=== PATIENT | female | born 1980 | race Caucasian/White ===

== ENCOUNTER 2016-11-01 10:10 | Emergency (ER) | payer SELFPAY ==
[~2016-11-01] VITALS: Ht 162.6 cm; Wt 57.0 kg
[2016-11-01 10:34] VITALS: BP 110/69; PULSE 77; RESP 28; TEMP 97.9; O2SAT 100
[2016-11-01 11:21] LABS: GLUCOSE,URINE NEG (NEG); KETONE, URINE TRACE mg/dL (NEG); NITRITE,URINE NEG (NEG)
[2016-11-01 11:29] LABS: BLOOD, URINE MOD (NEG)
[2016-11-01 11:30] LABS: METHOD OF COLLECTION CLEAN CATCH; URINE COLOR YELLOW (YELLW/STRAW)
[2016-11-01 11:31] LABS: BACTERIA, URINE FEW /hpf; COMMENT (UR) CULT NOT INDICATED; CULTURE IF INDICATED CULT NOT INDICATED; WBC, URINE 0-2 /hpf (0-5)
[2016-11-01] MEDS ORDERED: CIPR-9 PO (13:22)
[2016-11-01] MEDS ORDERED: ZITHTAB PO (13:42)
[2016-11-01] MEDS ORDERED: DIFL150T PO (13:42)
--- NOTE | 2016-11-01 13:42 | PD ---
HPI Chief Complaint: Cold / Flu Symptoms Time Seen by Provider: 13:22 Travel History International Travel<30 days: No Contact w/Intl Traveler<30days: No Traveled to known affect area: No History of Present Illness HPI 36-year-old female complains of coughing congestion and irregular vaginal bleeding. Patient states that she has productive cough since yesterday. Patient states that she has nasal congestion. Patient states that she has mild shortness of breath. Patient states that she has low-grade fever at home. Patient denies any chest pain. Patient states that she started having pelvic cramping and vaginal bleeding 5 days ago. Patient had IUD placement. Patient denies any dysuria or frequency. Patient denies any back pain. 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 Patient's on day 5 of Cipro for UTI. PFSH Past Medical History Diminished Hearing: No Migraines: Yes Tetanus Vaccination: < 5 Years ?: Not LMP: LMP 1-8-17, BLEEDING TODAY, HAS IUD : 3 Para: 2 Ovarian Cysts: Yes Past Surgical History Abdominal Surgery: Yes (SPHINCTEROTOMY) Body Medical Devices: COPPER IUD Other Surgery: Yes (BILATERAL BREAST AUGMENTATION) Social History Alcohol Use: No Tobacco Use: No Substance Use: No Allergies-Medications (Allergen,Severity, Reaction): Coded Allergies: Codeine (Verified Allergy, Severe, HIVES, DIFFICULTY BREATHING, 11/01/16) Shellfish (Verified Allergy, Severe, Hives, 11/01/16) Reported Meds & Prescriptions Reported Meds & Active Scripts Active Reported Cipro (Ciprofloxacin HCl) 500 Mg Tab 500 Mg PO BID Review of Systems General / Constitutional: No: Fever Eyes: No: Visual changes HENT: No: Headaches Cardiovascular: No: Chest Pain or Discomfort Respiratory: Positive: Cough, Shortness of Breath Gastrointestinal: No: Abdominal Pain Genitourinary: Positive: Vaginal Bleeding, No: Dysuria Musculoskeletal: No: Pain Skin: No Rash Neurologic: No: Weakness Psychiatric: No: Depression Endocrine: No: Polydipsia Hematologic/Lymphatic: No: Easy Bruising Physical Exam Narrative GENERAL: Well-nourished, well-developed patient. SKIN: Warm and dry. HEAD: Normocephalic. EYES: No scleral icterus. No injection or drainage. NECK: Supple, trachea midline. No JVD or lymphadenopathy. CARDIOVASCULAR: Regular rate and rhythm without murmurs, gallops, or rubs. RESPIRATORY: Breath sounds equal bilaterally. No accessory muscle use. GASTROINTESTINAL: Abdomen soft, non-tender, nondistended. MUSCULOSKELETAL: No cyanosis, or edema. BACK: Nontender without obvious deformity. No CVA tenderness. Neurologic exam normal. Data Data Last Documented VS Vital Signs Date Time Temp Pulse Resp B/P Pulse Ox O2 Delivery O2 Flow Rate FiO2 11/01/16 13:17 20 100 Room Air 11/01/16 10:34 97.9 77 110/69 Orders Urinalysis - C+S If Indicated (11/01/16 11:02) Ed Urine Pregnancytest Poc (11/01/16 11:02) Labs Laboratory Tests Test 11/01/16 11:00 Urine Collection Type CLEAN CATCH Urine Color YELLOW Urine Turbidity CLEAR Urine pH 7.0 Urine Specific Morton 1.022 Urine Protein NEG mg/dL Urine Glucose (UA) NEG mg/dL Urine Ketones TRACE mg/dL Urine Occult Blood MOD Urine Nitrite NEG Urine Bilirubin NEG Urine Leukocyte Esterase NEG Urine RBC 10-14 /hpf Urine WBC 0-2 /hpf Urine Squamous Epithelial 6-8 /hpf Cells Urine Bacteria FEW /hpf Microscopic Urinalysis Comment CULT NOT INDICATED Urine Collection Time 11:00 [facility] Medical Decision Making Medical Screen Exam Complete: Yes Emergency Medical Condition: Yes Interpretation(s) 1339 PM. Urine test negative. UA positive few RBC. Otherwise negative WBC. Differential Diagnosis Differential diagnosis including URI, bronchitis, pneumonia, dysfunctional uterine bleeding, dysmenorrhea, threatened AB, ectopic . Narrative Course 36-year-old female with congestion, productive cough, pelvic cramping and vaginal bleeding. Patient is on Cipro for UTI. Diagnosis Primary Impression: Bronchitis Additional Impression: Irregular periods/menstrual cycles Patient Instructions: General Instructions Additional Instructions: Stop Cipro. Z-Chintan as directed. Follow-up with local physician. Return if worse. [id number]-[id number] cough medication as needed. Med/Other Pt SpecificInfo: Prescription(s) given Scripts Fluconazole (Diflucan)150 Mg [id number] Mg PO ONCE #1 TAB Ref 0 Prov:Juan Antonio Bowser MD 11/01/16 Azithromycin (Zithromax Z-Chintan)250 Mg [id number] Mg PO DIRECTED #1 DSPK 500 MG (2 tabs) day 1, then 1 tab days 2-5. Prov:Juan Antonio Bowser MD 11/01/16 Disposition: 01 DISCHARGE HOME Condition: Stable Juan Antonio Bowser MD Nov 01, 2016 13:42
[2016-11-01 13:59] VITALS: BP 112/68
== END 2016-11-01 14:00 | disposition home or self-care (01) ==
LOC: PHED 10:10 → PHEFT 14:00
DX: J40 Bronchitis, not specified as acute or chronic (principal); N92.6 Irregular menstruation, unspecified
CPT/HCPCS: 81001; 84703; 99284

== ENCOUNTER 2017-03-21 01:36 | Emergency (ER) | payer OTHER ==
[~2017-03-21] VITALS: Ht 162.6 cm; Wt 59.3 kg
[~2017-03-21 01:36] MED LIST: CIPR-9 PO; DIFL150T PO; ZITHTAB PO
[2017-03-21 01:43] VITALS: BP 126/76; PULSE 62; RESP 16; TEMP 97.7; O2SAT 97
[2017-03-21 01:53] VITALS: BP 126/76; PULSE 62; RESP 20; TEMP 97.7; O2SAT 97
--- NOTE | 2017-03-21 01:57 | PD ---
HPI Chief Complaint: Allergic/Adverse Reaction Time Seen by Provider: 01:46 Travel History International Travel<30 days: No Contact w/Intl Traveler<30days: No History of Present Illness HPI This is a 37-year-old female who presents to the emergency department with an itchy rash that started around 4 PM, constant, severe, spreading to involve her whole body. She denies any associated shortness of breath, throat tightness, difficulty swallowing or lightheadedness. She did complete a course of Flagyl on Saturday but otherwise has used no new medications. She says her daughter gets allergic reactions like this but this is never happened to her. She took Benadryl and the rash went away for a while but then overnight it woke her up and she took Benadryl but it didn't go away so she came to the emergency department. [facility] Past Medical History Diminished Hearing: No Migraines: Yes : 3 Para: 2 Ovarian Cysts: Yes Past Surgical History Abdominal Surgery: Yes (SPHINCTEROTOMY) Body Medical Devices: COPPER IUD Other Surgery: Yes (BILATERAL BREAST AUGMENTATION) Social History Alcohol Use: No Tobacco Use: No Substance Use: No Allergies-Medications (Allergen,Severity, Reaction): Coded Allergies: Codeine (Verified Allergy, Severe, HIVES, DIFFICULTY BREATHING, 03/21/17) Shellfish (Verified Allergy, Severe, Hives, 03/21/17) Reported Meds & Prescriptions Reported Meds & Active Scripts Active Diflucan (Fluconazole) 150 Mg Tab 150 Mg PO ONCE Zithromax Z-Chintan (Azithromycin) 250 Mg Dspk 250 Mg PO DIRECTED 500 MG (2 tabs) day 1, then 1 tab days 2-5. Reported Diphenhydramine (Diphenhydramine HCl) 25 Mg Cap 25 Mg PO ONCE Cipro (Ciprofloxacin HCl) 500 Mg Tab 500 Mg PO BID Review of Systems Except as stated in HPI: all other systems reviewed are Neg Physical Exam Narrative GENERAL:Well appearing, no acute distress SKIN: Diffuse urticarial rash involving the torso, and bilateral arms and legs HEAD: Atraumatic. Normocephalic. EYES: Pupils equal and round. No injection or drainage. ENT: Moist mucous membranes NECK: Trachea midline. CARDIOVASCULAR: Regular rate and rhythm. No murmur appreciated. RESPIRATORY: Clear to auscultation. Breath sounds equal bilaterally. GASTROINTESTINAL: Abdomen soft, non-tender, nondistended. MUSCULOSKELETAL: No obvious deformities. NEUROLOGICAL: Awake and alert. No obvious cranial nerve deficits. Moving all extremities. PSYCHIATRIC: Appropriate mood and affect; insight and judgment normal. Data Data Last Documented VS Vital Signs Date Time Temp Pulse Resp B/P Pulse Ox O2 Delivery O2 Flow Rate FiO2 03/21/17 02:34 55 20 103/69 99 03/21/17 01:53 97.7 Orders Methylprednisolone So Succ Inj (Solumedr (03/21/17 02:00) Diphenhydramine Inj (Benadryl Inj) (03/21/17 02:00) ^ Insert Iv (03/21/17 01:55) Famotidine Inj (Pepcid Inj) (03/21/17 02:30) Hydroxyzine Hcl (Atarax) (03/21/17 02:30) MDM Medical Decision Making Medical Screen Exam Complete: Yes Emergency Medical Condition: Yes Interpretation(s) Afebrile, no tachycardia, normotensive Differential Diagnosis Urticaria, acute allergic reaction, anaphylaxis Narrative Course This Is a 37-year-old female who presents to the emergency department having had acute onset of an urticarial rash earlier today. She has no respiratory symptoms and no other symptoms of anaphylaxis. She was very uncomfortable and itchy on arrival. An IV was established and she was given steroids, Benadryl and an H2 weston. Her symptoms improved significantly. I am Not sure what the allergen was. She says she has an EpiPen at home that she keeps for her daughter and we discussed the indications for EpiPen use. She'll be discharged home with prednisone and hydroxyzine. Diagnosis Primary Impression: Urticaria Patient Instructions: General Instructions Additional Instructions: If you develop swelling of the throat or coughing a lot, wheezing or trouble breathing, throwing up or having diarrhea, feeling dizzy or passing out, or spreading of your rash return to the emergency room immediately as you may be having a life threatening allergic reaction. Complete your course of steroids and take benadryl or hydroxyzine every 6 hours for the next 48 hours and then as needed for itching or other symptoms. Med/Other Pt SpecificInfo: Prescription(s) given Scripts Prednisone 20 Mg Tab40 Mg PO DAILY 5 Days Ref 0 Take 40 mg (2 tablets) daily for 5 days Prov:Nirali Yoon MD 03/21/17 Hydroxyzine HCl 25 Mg Tab25 Mg PO QID PRN (ITCHING) #10 TAB Ref 0 Prov:Nirali Yoon MD 03/21/17 Disposition: 01 DISCHARGE HOME Condition: Stable Nirali Yoon MD Mar 21, 2017 01:57
[2017-03-21] MEDS ORDERED: diphenhydrAMINE HCL 50 MG/ML VIAL IV PUSH ONE (02:00)
[2017-03-21] MEDS ORDERED: methylPREDNISolone SOD SUCC 125 MG/2 ML VIAL IV PUSH ONE (02:00)
[2017-03-21] MEDS ORDERED: DIPH25CA PO (02:19)
[2017-03-21] MEDS ORDERED: hydrOXYzine HCL 25 MG TAB PO ONE (02:30)
[2017-03-21] MEDS ORDERED: FAMOTIDINE 20 MG/2 ML VIAL IV PUSH ONE (02:30)
[2017-03-21 02:34] VITALS: BP 103/69; PULSE 55; RESP 20; O2SAT 99
[2017-03-21] MEDS ORDERED: HYDR-3133 PO (03:10)
[2017-03-21] MEDS ORDERED: PRED20 PO (03:10)
[2017-03-21 03:26] VITALS: BP 122/74
== END 2017-03-21 03:35 | disposition home or self-care (01) ==
LOC: PHED 01:36
DX: L50.9 Urticaria, unspecified (principal)
CPT/HCPCS: 96374; 96375; 99284; J1200; J2930

== ENCOUNTER 2017-11-12 13:41 | Emergency (ER) | payer OTHER ==
[~2017-11-12] VITALS: Ht 162.6 cm; Wt 59.1 kg
[~2017-11-12 13:41] MED LIST changes: +DIPH25CA PO; +HYDR-3133 PO; +PRED20 PO
[2017-11-12 13:44] VITALS: BP 119/65; PULSE 57; RESP 12; TEMP 98; O2SAT 99
--- NOTE | 2017-11-12 14:08 | PD ---
HPI Chief Complaint: syncope Time Seen by Provider: 13:56 Travel History International Travel<30 days: No Contact w/Intl Traveler<30days: No Traveled to known affect area: No History of Present Illness HPI This 37-year-old female is brought by you back after a syncopal episode. 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 She hit her knee on the desk and had sudden sharp pain. She bent over and apparently had a loss of consciousness. She has had syncopal episodes in the past. She says she is not she is having pain in the back of her head where she says she hit the floor. He very checked her blood sugar and it was 73. She's had some symptoms of hypoglycemia in the past and has never been diagnosed PFSH Past Medical History Medical History: Denies Significant Hx Diminished Hearing: No Migraines: Yes Influenza Vaccination: Yes ?: Not LMP: 10/29/17 : 3 Para: 2 Ovarian Cysts: Yes Past Surgical History Abdominal Surgery: Yes (SPHINCTEROTOMY) Body Medical Devices: COPPER IUD Other Surgery: Yes (BILATERAL BREAST AUGMENTATION) Social History Alcohol Use: Yes (OCCASIONAL) Tobacco Use: No Substance Use: No Allergies-Medications (Allergen,Severity, Reaction): Coded Allergies: codeine (Verified Allergy, Severe, HIVES, DIFFICULTY BREATHING, 11/12/17) shellfish derived (Verified Allergy, Severe, Hives, 11/12/17) Reported Meds & Prescriptions Reported Meds & Active Scripts Active Review of Systems General / Constitutional: No: Fever, Chills Eyes: No: Diploplia HENT: Positive: Headaches, Lightheadedness Cardiovascular: Positive: Syncope, No: Chest Pain or Discomfort, Palpitations Respiratory: No: Cough, Shortness of Breath Gastrointestinal: No: Nausea, Vomiting Genitourinary: No: Frequency Musculoskeletal: No: Myalgias, Arthralgias Skin: No Rash Neurologic: No: Weakness Endocrine: No: Heat Intolerance Hematologic/Lymphatic: No: Easy Bruising Physical Exam Narrative GENERAL: Well-developed female SKIN: Focused skin assessment warm/dry. HEAD: There is tenderness in the left parietal and occipital areas with some swelling Normocephalic. EYES: Pupils equal and round. No scleral icterus. No injection or drainage. ENT: No nasal bleeding or discharge. Mucous membranes pink and moist. NECK: Trachea midline. No JVD. CARDIOVASCULAR: Regular rate and rhythm. No murmur appreciated. RESPIRATORY: No accessory muscle use. Clear to auscultation. Breath sounds equal bilaterally. GASTROINTESTINAL: Abdomen soft, non-tender, nondistended. Hepatic and splenic margins not palpable. MUSCULOSKELETAL: No obvious deformities. No clubbing. No cyanosis. No edema. NEUROLOGICAL: Awake and alert. No obvious cranial nerve deficits. Motor grossly within normal limits. Normal speech. PSYCHIATRIC: Appropriate mood and affect; insight and judgment normal. Data Data Last Documented VS Vital Signs Date Time Temp Pulse Resp B/P (MAP) Pulse Ox O2 Delivery O2 Flow Rate FiO2 11/12/17 14:33 58 16 113/75 (88) 98 Room Air 11/12/17 13:[address] Brain W/O Iv Contrast(Rout) (11/12/17 14:05) Ibuprofen (Motrin) (11/12/17 14:45) MDM Medical Decision Making Medical Screen Exam Complete: Yes Emergency Medical Condition: Yes Medical Record Reviewed: Yes Differential Diagnosis Differential includes vasovagal syncope, hypoglycemia, contusion head, skull fracture, epidural hematoma Narrative Course Exam is benign and the history is consistent with vasovagal syncope. CT of the brain is read as negative. Patient is stable for discharge Diagnosis Primary Impression: Vasovagal syncope Additional Impression: Contusion of head Disposition: 01 DISCHARGE HOME Condition: Stable Shankar Gibbs MD Nov 12, 2017 14:08
[2017-11-12 14:33] VITALS: BP 113/75; PULSE 58; RESP 16; O2SAT 98
--- NOTE | 2017-11-12 14:42 | RADRPT ---
EXAM DATE/TIME: 11/12/2017 14:22 [facility] COMPARISON: CT BRAIN W/O CONTRAST, May 03, 2012, 18:32. INDICATIONS : Fell and hit back of head. Now complains of nausea and dizziness. RADIATION DOSE: 46.37 CTDIvol (mGy) MEDICAL HISTORY : None SURGICAL HISTORY : None. ENCOUNTER: Initial ACUITY: 1 day PAIN SCALE: 4/10 LOCATION: occipital TECHNIQUE: Multiple contiguous axial images were obtained of the head. Using automated exposure control and adj ustment of the mA and/or kV according to patient size, radiation dose was kept as low as reasonably a chievable to obtain optimal diagnostic quality images. DICOM format image data is available electro nically for review and comparison. FINDINGS: CEREBRUM: The ventricles are normal for age. No evidence of midline shift, mass lesion, hemorrhage or acute in farction. No extra-axial fluid collections are seen. POSTERIOR FOSSA: The cerebellum and brainstem are intact. The 4th ventricle is midline. The cerebellopontine angle i s unremarkable. EXTRACRANIAL: The visualized portion of the orbits is intact. SKULL: The calvaria is intact. No evidence of skull fracture. CONCLUSION: No acute disease. Félix Washington MD on November 12, 2017 at 14:39 Board Certified Radiologist. This report was verified electronically.
[2017-11-12] MEDS ORDERED: IBUPROFEN 600 MG TAB PO ONE (14:45)
[2017-11-12] MEDS ORDERED: MECLIZINE HCL 25 MG TAB PO ONE (15:30)
[2017-11-12 15:31] VITALS: BP_SYST 104; BP_SYST 109; BP_SYST 111; BP_DIAS 63; BP_DIAS 64; BP_DIAS 69; RESP 16
[2017-11-12 16:00] VITALS: BP 101/65
== END 2017-11-12 16:19 | disposition home or self-care (01) ==
LOC: PHED 13:41
DX: R55 Syncope and collapse (principal); S00.93XA Contusion of unspecified part of head, initial encounter; W18.39XA Other fall on same level, initial encounter; Y92.531 Health care provider office as the place of occurrence of the external cause; Y99.0 Civilian activity done for income or pay; Z88.5 Allergy status to narcotic agent; Z91.013 Allergy to seafood
CPT/HCPCS: 70450; 99283